=== PATIENT | male | born 1940 | race Caucasian/White ===

== ENCOUNTER 2019-11-25 16:15 | Outpatient (REF) | payer MEDICARE, SELFPAY | END 2019-11-25 16:16 | disposition home or self-care (01) | LOC: HO.LAB 16:15 | PROVIDERS: PCP Internal Medicine; Visit Provider Internal Medicine | DX: Z20.828 Contact with and (suspected) exposure to other viral communicable diseases (principal) | CPT/HCPCS: 36415; 87635 ==